=== PATIENT | male | born 1965 | race Caucasian/White ===

== ENCOUNTER → 2019-02-18 | Outpatient (CLI) | payer MEDICARE, MEDICAID ==
--- NOTE | 2019-02-18 09:40 | Diagnostic Imaging Report ---
EXAMINATION: Lumbar spine. INDICATION: Chronic back pain. COMPARISON: There are no prior studies available for comparison. FINDINGS: Three views were obtained. On the spot lateral view, there is a grade 1 spondylolisthesis of L5 with respect to S1 and narrowing of the disc space at L5-S1. There also appear to be bilateral pars defects. The alignment of the other vertebral bodies is within normal limits and the other intervertebral spaces are well-maintained. There is no fracture or acute bony abnormality evident. There is no sign of a paraspinal mass. There is mild symmetrical sclerosis of the sacroiliac joints. IMPRESSION: 1. There is no evidence for an acute bony abnormality. 2. There is fairly severe degenerative disc and bony disease at L5-S1. There is a grade 1 spondylolisthesis of L5 with respect to S1, narrowing of the disc space, and bilateral pars defects. 3. If there is clinical concern regarding spinal stenosis or nerve root encroachment at the L5-S1 level, then MRI would be recommended for further study. Dictated by: Dictated on workstation # [id number]
== END ==
LOC: RAD FS 09:00
PROVIDERS: ATTEND Nurse Practitioner Family
DX: M51.37 Other intervertebral disc degeneration, lumbosacral region (principal); M89.9 Disorder of bone, unspecified; M43.06 Spondylolysis, lumbar region
CPT/HCPCS: 72100

== ENCOUNTER → 2019-03-18 | Outpatient (CLI) | payer MEDICARE, MEDICAID ==
--- NOTE | 2019-03-18 11:32 | Diagnostic Imaging Report ---
INDICATION: Pre-MRI screening. Time of exam 11:20 a.m. FINDINGS: Right chest wall cardiac defibrillator is in place. Lead tips in the region of the right ventricle. No interruption of the leads is seen. There appears to be some infiltrate or atelectasis in the left base partially obscuring the left hemidiaphragm. Right lung is clear. There is no pneumothorax. IMPRESSION: Mild left basilar infiltrate or atelectasis. Dictated by: Dictated on workstation # [id number]
--- NOTE | 2019-03-18 12:10 | Diagnostic Imaging Report ---
PROCEDURE: MRI lumbar spine. TECHNIQUE: Multiplanar, multisequence MRI of the lumbar spine was performed without contrast. INDICATION: Low back pain and left hip pain. Patient has had two lumbar spine surgeries in last 20 years. COMPARISON: No prior studies are available for comparison. FINDINGS: Curvature of the lumbar spine is normal. There is grade 1 spondylolisthesis of L5 on S1. There are suspected pars defects at this level. Vertebral body heights are maintained. The marrow signal intensity is unremarkable. No acute compression fracture or geographic marrow lesion is seen. Mild disc desiccation is seen at L4-L5. There is loss of height and signal intensity of the L5-S1 disc, compatible with degenerative disc disease. The conus is unremarkable at the L1 level. T12-L1: Central canal and neuroforamina are widely patent. L1-L2: No central canal or neuroforaminal stenosis is identified. L2-L3: No central canal or neuroforaminal stenosis is identified. L3-L4: No central canal or neuroforaminal stenosis is identified. L4-L5: Central canal is patent. There is moderate left and [id number] right neuroforaminal narrowing due to broad-based disc/osteophyte complex. L5-S1: Broad-based disc/osteophyte complex indents the ventral thecal sac. Central canal is patent. There is bilateral lateral recess stenosis. There is significant bilateral neuroforaminal stenosis. Paraspinous tissues are unremarkable. IMPRESSION: 1. L5-S1 grade 1 spondylolisthesis and bilateral spondylolyses. Significant bilateral neuroforaminal and lateral recess stenosis is noted at this level as well. No central canal stenosis is seen. There is also moderate bilateral neuroforaminal narrowing at L4-L5. No other significant abnormality is seen. Dictated by: Dictated on workstation # [id number]
== END ==
LOC: RAD 02-27 12:41
PROVIDERS: ATTEND Nurse Practitioner Family
DX: Z01.818 Encounter for other preprocedural examination (principal); M43.17 Spondylolisthesis, lumbosacral region; M48.061 Spinal stenosis, lumbar region without neurogenic claudication; M51.36 Other intervertebral disc degeneration, lumbar region; Z95.810 Presence of automatic (implantable) cardiac defibrillator
CPT/HCPCS: 71045; 72148

== ENCOUNTER 2019-04-01 18:15 | Emergency (ER) | payer MEDICAID, MEDICARE ==
[~2019-04-01] VITALS: Ht 182.9 cm; Wt 113.4 kg
--- OUTSIDE RECORDS SUMMARY | 2019-04-01 18:20 | XMS REPORT | Continuity of Care Document ---
Author Organization Unknown Address Unknown Allergies There is no data. Medications There is no data. Problems There is no data. Procedures There is no data. Results Test Result Range A1C - 02/18/19 08:55 HEMOGLOBIN A1c 11.0 % of total Hgb <5.7 Encounters ACCT No. Visit Date/Time Discharge Status Pt. Type Provider Facility Loc./Unit Complaint [id number] 02/18/2019 08:00:00 02/18/2019 23:59:59 [facility] Outpatient JEROMY KRISHNAMURTHY [facility] [id number] 02/18/2019 08:00:00 Document Registration
[2019-04-01] MEDS ORDERED: NS IV 1000 ML 1,000 ML IV ONE (18:44)
[2019-04-01 18:58] LABS: BILIRUBIN,URINE NEGATIVE (NEGATIVE); CLARITY,URINE CLEAR; COLOR,URINE YELLOW; GLUCOSE, URINE (UA) NEGATIVE (NEGATIVE); KETONES,URINE NEGATIVE (NEGATIVE); LEUKOCYTE ESTERASE ,URINE NEGATIVE (NEGATIVE); NITRITE,URINE NEGATIVE (NEGATIVE); PROTEIN,URINE 2+ (NEGATIVE); RBC,URINE 0-2 /HPF; UROBILINOGEN,URINE 0.2 MG/DL (NORMAL)
[2019-04-01 18:59] LABS: BACTERIA,URINE TRACE /HPF; SQUAMOUS EPITHELIAL CELL,UR 0-2 /HPF; WBC,URINE 0-2 /HPF
[2019-04-01] MEDS ORDERED: KETOROLAC 30 MG/ML VIAL IVP ONE (19:00)
[2019-04-01 19:16] LABS: HEMATOCRIT 43 % (40-54); HEMOGLOBIN 14.5 G/DL (13.3-17.7); MEAN CORPUSCULAR HEMOGLOBIN 28 PG (25-34); MEAN CORPUSCULAR HGB CONC 34 G/DL (32-36); MEAN CORPUSCULAR VOLUME 83 FL (80-99); RED CELL DISTRIBUTION WIDTH 13.4 % (10.0-14.5); WHITE BLOOD COUNT 6.5 10^3/uL (4.3-11.0)
[2019-04-01 19:17] LABS: BASOPHILS % (AUTO) 1 % (0-10); EOSINOPHILS # (AUTO) 0.1 10^3/uL (0.0-0.3); EOSINOPHILS % (AUTO) 2 % (0-10); LYMPHOCYTES # (AUTO) 1.9 X 10^3 (1.0-4.0); LYMPHOCYTES % (AUTO) 29 % (12-44); MEAN PLATELET VOLUME 11.9 FL (7.4-10.4); MONOCYTES # (AUTO) 0.5 X 10^3 (0.0-1.0); MONOCYTES % (AUTO) 8 % (0-12); NEUTROPHILS # (AUTO) 3.9 X 10^3 (1.8-7.8); NEUTROPHILS % (AUTO) 60 % (42-75); PLATELET COUNT 256 10^3/uL (130-400)
[2019-04-01 19:57] LABS: BILIRUBIN,TOTAL 0.5 MG/DL (0.1-1.0); BUN/CREATININE RATIO 16; CALCIUM 10.4 MG/DL (8.5-10.1); CARBON DIOXIDE 22 MMOL/L (21-32); CHLORIDE 102 MMOL/L (98-107); CREATININE SERUM 1.02 MG/DL (0.60-1.30); GFR ESTIMATED > 60; GLUCOSE 149 MG/DL (70-105); POTASSIUM 4.7 MMOL/L (3.6-5.0); SODIUM 137 MMOL/L (135-145)
[2019-04-01 19:58] LABS: ALANINE AMINOTRANSFERASE 15 U/L (0-55); ALBUMIN 4.5 GM/DL (3.2-4.5); ALKALINE PHOSPHATASE 108 U/L (40-136); TOTAL PROTEIN 7.3 GM/DL (6.4-8.2)
[2019-04-01] MEDS ORDERED: fentaNYL INJECTION 100 MCG/2 ML AMP IVP ONE ×2 (20:15→20:45)
--- NOTE | 2019-04-01 20:39 | NUR ---
DOCTOR IN TO SEE THE PATIENT.
--- NOTE | 2019-04-01 21:14 | Diagnostic Imaging Report ---
Clinical indication: Patient started having left-sided flank pain that started today. Exam: KUB x-ray. Comparison: None. Findings: There are no focal calcifications overlying the expected regions/ pathways of both kidneys, ureters, and bladder regions. There is a nonobstructed bowel gas pattern. There is no evidence of abdominal free air. There is a small to moderate amount of stool seen throughout the colon with most noted in the right colon region. Surgical clips are seen overlying the right upper quadrant which could be related to cholecystectomy changes. There are degenerative spurs involving the visualized portion of the thoracic and lumbar spine. Partially visualized cardiac pacemaker/AICD wires are seen. Impression: There is no radiographic evidence for acute abdominal/ pelvic process or urinary tract stones. There is a small to moderate amount of stool seen throughout the colon. Dictated by: Dictated on workstation # [id number]
--- NOTE | 2019-04-01 21:15 | NUR ---
PT. STATED HIS PAIN IS STILL A 7
--- NOTE | 2019-04-01 21:30 | ED Abdominal Pain ---
General Chief Complaint: - Urinary Stated Complaint: BACK PAIN, PAIN W URINATION Nursing Triage Note: Patient c/o left flank pain. States he thinks it is a kidney stone. The pain started today around 3pm and was not relieved with tylenol. There is pain and frequency with urination. Sepsis Screen: No Definite Risk Source of Information: Patient Exam Limitations: No Limitations History of Present Illness Date Seen by Provider: April 01, 2019 Time Seen by Provider: 18:23 Initial Comments This 53-year-old man presents to the emergency room with complaints of left flank pain that started around 15:00. It radiates to the left groin. He has dysuria associated with it. He has a history of kidney stones and states this feels similar to prior kidney stones. He denies any fever, hematuria, nausea, vomiting, diarrhea, or constipation. He reports pain 9/10. Allergies and Home Medications Allergies Coded Allergies: aspirin (Verified Allergy, Unknown, 04/01/19) canagliflozin (Verified Allergy, Unknown, 04/01/19) Patient Home Medication List Home Medication List Reviewed: Yes Review of Systems Review of Systems Constitutional: no symptoms reported EENTM: No Symptoms Reported Respiratory: No Symptoms Reported Cardiovascular: No Symptoms Reported Gastrointestinal: See HPI Genitourinary: See HPI Musculoskeletal: no symptoms reported Skin: no symptoms reported Psychiatric/Neurological: No Symptoms Reported Endocrine: No Symptoms Reported Hematologic/Lymphatic: No Symptoms Reported Past Xngcpvt-Emzplc-Dobrfg Hx Past Med/Social Hx: Reviewed and Corrections made Patient Social History Alcohol Use: Denies Use Recreational Drug Use: No Smoking Status: Never a Smoker 2nd Hand Smoke Exposure: No Recent Foreign Travel: No Contact w/Someone Who Travel: No Recent Infectious Disease Expo: No Recent Hopitalizations: No Physical Abuse: No Sexual Abuse: No Mistreated: No Fear: No Seasonal Allergies Seasonal Allergies: No Past Medical History Surgeries: Yes Cardiac (ICD 3), Coronary Stent, Gallbladder, Nephrectomy, Orthopedic (back) Respiratory: Yes COPD Cardiac: Yes Hypertension Neurological: No Genitourinary: Yes Kidney Stones Gastrointestinal: No Musculoskeletal: No Endocrine: Yes Diabetes, Non-Insulin dep HEENT: No Cancer: No Psychosocial: No Integumentary: No Blood Disorders: No Physical Exam Vital Signs Vital Signs - First Documented 04/01/19 18:30 Temp 98.7 Pulse 74 Resp 18 B/P (MAP) 171/93 (119) Pulse Ox 98 O2 Delivery Room Air Capillary Refill : Less Than 3 Seconds Height/Weight/BMI Height: 6'0" Weight: 250lbs. oz. 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, no motor/sensory deficits, alert, normal mood/affect, oriented x 3 Skin: normal color, warm/dry Progress/Results/Core Measures Results/Orders Lab Results Laboratory Tests Test 04/01/19 18:42 04/01/19 19:00 Range/Units Urine Color YELLOW Urine Clarity CLEAR Urine pH 6.0 5-9 Urine Specific [place] 1.020 1.016-1.022 Urine Protein 2+ H NEGATIVE Urine Glucose (UA) NEGATIVE NEGATIVE Urine Ketones NEGATIVE NEGATIVE Urine Nitrite NEGATIVE NEGATIVE Urine Bilirubin NEGATIVE NEGATIVE Urine Urobilinogen 0.2 NORMAL MG/DL Urine Leukocyte Esterase NEGATIVE NEGATIVE Urine RBC (Auto) TRACE H NEGATIVE Urine RBC 0-2 /HPF Urine WBC 0-2 /HPF Urine Squamous Epithelial Cells 0-2 /HPF Urine Crystals NONE /LPF Urine Bacteria TRACE /HPF Urine Casts NONE /LPF Urine Mucus NONE /LPF Urine Culture Indicated NO White Blood Count 6.5 4.3-11.0 10^3/uL Red Blood Count 5.17 4.35-5.85 10^6/uL Hemoglobin 14.5 13.3-17.7 G/DL Hematocrit 43 40-54 % Mean Corpuscular Volume 83 80-99 FL Mean Corpuscular Hemoglobin 28 25-34 PG Mean Corpuscular Hemoglobin Concent 34 32-36 G/DL Red Cell Distribution Width 13.4 10.0-14.5 % Platelet Count 256 130-400 10^3/uL Mean Platelet Volume 11.9 H 7.4-10.4 FL Neutrophils (%) (Auto) 60 42-75 % Lymphocytes (%) (Auto) 29 12-44 % Monocytes (%) (Auto) 8 0-12 % Eosinophils (%) (Auto) 2 0-10 % Basophils (%) (Auto) 1 0-10 % Neutrophils # (Auto) 3.9 1.8-7.8 X 10^3 Lymphocytes # (Auto) 1.9 1.0-4.0 X 10^3 Monocytes # (Auto) 0.5 0.0-1.0 X 10^3 Eosinophils # (Auto) 0.1 0.0-0.3 10^3/uL Basophils # (Auto) 0.0 0.0-0.1 10^3/uL Sodium Level 137 135-145 MMOL/L Potassium Level 4.7 3.6-5.0 MMOL/L Chloride Level 102 98-107 MMOL/L Carbon Dioxide Level 22 21-32 MMOL/L Anion Gap 13 5-14 MMOL/L Blood Urea Nitrogen 16 7-18 MG/DL Creatinine 1.02 0.60-1.30 MG/DL Estimat Glomerular Filtration Rate > 60 BUN/Creatinine Ratio 16 Glucose Level 149 H 70-105 MG/DL Calcium Level 10.4 H 8.5-10.1 MG/DL Corrected Calcium 10.0 8.5-10.1 MG/DL Total Bilirubin 0.5 0.1-1.0 MG/DL Aspartate Amino Transf (AST/SGOT) 15 5-34 U/L Alanine Aminotransferase (ALT/SGPT) 15 0-55 U/L Alkaline Phosphatase 108 40-136 U/L Total Protein 7.3 6.4-8.2 GM/DL Albumin 4.5 3.2-4.5 GM/DL My Orders Orders - FRITZ SANTAMARIA MD Ua Culture If Indicated (04/01/19 18:23) Cbc With Automated Diff (04/01/19 18:44) Comprehensive Metabolic Panel (04/01/19 18:44) Ed Iv/Invasive Line Start (04/01/19 18:44) Ns Iv 1000 Ml (Sodium Chloride 0.9%) (04/01/19 18:44) Ketorolac Injection (Toradol Injection) (04/01/19 19:00) Fentanyl Injection (Sublimaze Injection (04/01/19 20:15) Abdomen Flat & Upright/Decub (04/01/19 20:42) Fentanyl Injection (Sublimaze Injection (04/01/19 20:45) Rx-Hydrocodone/Apap 5-325 Mg (Rx-Vicodin (04/01/19 21:45) Medications Given in ED Current Medications Medications Dose Ordered Sig/Yordy Route Start Time Stop Time Status Last Admin Dose Admin Fentanyl Citrate 50 mcg ONCE ONCE IVP 04/01/19 20:15 04/01/19 20:16 DC 04/01/19 20:19 50 MCG Sodium Chloride 1,000 ml @ 0 mls/hr Q0M ONCE IV 04/01/19 18:44 04/01/19 18:46 DC 04/01/19 20:00 1,000 MLS/HR Vital Signs/I&O 04/01/19 04/01/19 18:30 21:47 Temp 98.7 Pulse 74 70 Resp 18 18 B/P (MAP) 171/93 (119) 140/74 (96) Pulse Ox 98 95 O2 Delivery Room Air Room Air 04/02/19 00:00 Intake Total 1000 ml Balance 1000 ml Blood Pressure Mean: 119 Progress Progress Note : Progress Note Patient was first treated with Toradol and IV fluids. This gave him insufficient relief. Use and treated with fentanyl. Workup with labs, urinalysis, and abdominal x-ray was unremarkable. He was offered CT scan to search for ureteral stone. There was no hematuria but his pain was so similar to prior ureteral stone that CT imaging seemed appropriate. Patient declined to have CT done at this time. He will follow-up with his primary care provider and have the CT performed if he does not continue to improve at home. He was given a take-home pack of hydrocodone. Diagnostic Imaging Diagonstic Imaging: Xray Plain Films/CT/US/NM/MRI: abdomen, pelvis Comments KUB and upright x-rays viewed by me and report reviewed. See report below: NAME: JOSE CRUZ [facility] REC#: [id number] PT STATUS: DEP ER : 1965 PHYSICIAN: FRITZ SANTAMARIA MD ADMIT DATE: 04/01/19/ER FS Signed Date of Exam:04/01/19 ABDOMEN FLAT UPRIGHT/DECUB Clinical indication: Patient started having left-sided flank pain that started today. Exam: KUB x-ray. Comparison: None. Findings: There are no focal calcifications overlying the expected regions/ pathways of both kidneys, ureters, and bladder regions. There is a nonobstructed bowel gas pattern. There is no evidence of abdominal free air. There is a small to moderate amount of stool seen throughout the colon with most noted in the right colon region. Surgical clips are seen overlying the right upper quadrant which could be related to cholecystectomy changes. There are degenerative spurs involving the visualized portion of the thoracic and lumbar spine. Partially visualized cardiac pacemaker/AICD wires are seen. Impression: There is no radiographic evidence for acute abdominal/ pelvic process or urinary tract stones. There is a small to moderate amount of stool seen throughout the colon. Dictated by: Dictated on workstation # [id number] Dict: 04/01/192107 Trans: 04/01/19 2306 [facility] [id number] Interpreted by: LIU HACKETT MD Electronically signed by: LIU HACKETT MD 04/01/192305 Departure Impression Primary Impression: Left flank pain Additional Impression: Left lower quadrant pain Disposition: 01 HOME, SELF-CARE Condition: Improved Departure-Patient Inst. Referrals: [facility] Primary Care Physician JEROMY KRISHNAMURTHY APRN (Family) Primary Care Physician Patient Instructions: Kidney Stones in Adults, Acute Abdomen (Belly Pain) Add. Discharge Instructions: Drink plenty of clear liquids. You may take ibuprofen up to 600 mg every 6 hours as needed for pain. Add hydrocodone for pain not controlled by ibuprofen. Contact your doctor tomorrow morning for further care. Return to the ER if symptoms are worsening or you're not able to get in with your doctor. Strain your urine and bring any stones that may be caught to your follow-up appointment. All discharge instructions reviewed with patient and/or family. Voiced understanding. Copy Copies To 1: GENEVA CÁRDENAS JOSHUA T MD April 01, 2019 21:30
[2019-04-01] MEDS ORDERED: RX-HYDROCODONE/APAP 5/325 MG #4 TAB PK PO PRN (21:45)
[2019-04-01 21:47] VITALS: BP 140/74
== END 2019-04-01 21:47 | disposition home or self-care (01) ==
LOC: EDUNIT# 18:15 → ER FS 18:16
DX: R10.32 Left lower quadrant pain (principal); J44.9 Chronic obstructive pulmonary disease, unspecified; I10 Essential (primary) hypertension; E11.9 Type 2 diabetes mellitus without complications; Z87.442 Personal history of urinary calculi; Z88.6 Allergy status to analgesic agent; Z88.8 Allergy status to other drugs, medicaments and biological substances; Z95.5 Presence of coronary angioplasty implant and graft
CPT/HCPCS: 36415; 74019; 80053; 81000; 85025

== ENCOUNTER 2019-07-14 11:45 | Emergency (ER) | payer MEDICARE, MEDICAID ==
[~2019-07-14] VITALS: Ht 182.9 cm; Wt 111.1 kg
[2019-07-14] MEDS ORDERED: morphine INJ 10 MG/ML 1ML (SYR OR VIAL) IVP STA (12:17)
--- NOTE | 2019-07-14 12:26 | ED Abdominal Pain ---
General Chief Complaint: Back Problems Stated Complaint: RT FLANK PAIN Source of Information: Patient Exam Limitations: No Limitations History of Present Illness Date Seen by Provider: Jul 14, 2019 Time Seen by Provider: 12:10 Initial Comments The patient is a pleasant 53-year-old male who presents for evaluation of left flank pain which started yesterday evening. He reports a history of kidney stones the past and states that this feels the same. He denies any gross hematuria. He states the pain is starting to wrap around his left flank to his left lower abdomen. He is alert and oriented 4, appears uncomfortable, but is in no distress. He reports a history of hypertension and diabetes. He states he has had his gallbladder removed in the past but denies any other abdominal surgeries. He denies fevers or chills, nausea or vomiting, diarrhea, rectal bleeding, chest pain or shortness of breath, penile or testicular pain. Timing/Duration: 24 Hours Severity/Quality: Moderate Location: Flank (left) Radiation: LLQ Activities at Onset: None Associated Symptoms: Other (reports mild difficulty urinating) Allergies and Home Medications Allergies Coded Allergies: aspirin (Verified Allergy, Unknown, 04/01/19) canagliflozin (Verified Allergy, Unknown, 04/01/19) Home Medications Hydrocodone/Acetaminophen 1 Each Tablet, 1 TAB PO Q4H Prescribed by: ALON XAVIER on 07/14/19 1429 Tamsulosin HCl 0.4 Mg Cap, 0.4 MG PO DAILY Prescribed by: ALON XAVIER on 07/14/19 1429 Patient Home Medication List Home Medication List Reviewed: Yes Review of Systems Review of Systems Constitutional: no symptoms reported EENTM: No Symptoms Reported Respiratory: No Symptoms Reported Cardiovascular: No Symptoms Reported Gastrointestinal: No Symptoms Reported, Other (left flank pain) Genitourinary: Urgency Musculoskeletal: back pain (left flank) Skin: no symptoms reported Psychiatric/Neurological: No Symptoms Reported Endocrine: No Symptoms Reported Hematologic/Lymphatic: No Symptoms Reported All Other Systems Reviewed Negative Unless Noted: Yes Past Oyznywk-Mpnpfs-Xhlhak Hx Past Med/Social Hx: Reviewed Nursing Past Med/Soc Hx Patient Social History 2nd Hand Smoke Exposure: No Recent Hopitalizations: No Seasonal Allergies Seasonal Allergies: No Past Medical History Surgeries: Yes Cardiac, Coronary Stent, Gallbladder, Nephrectomy, Orthopedic Respiratory: Yes COPD Cardiac: Yes Hypertension Neurological: No Genitourinary: Yes Kidney Stones Gastrointestinal: No Musculoskeletal: No Endocrine: Yes Diabetes, Non-Insulin dep HEENT: No Cancer: No Psychosocial: No Integumentary: No Blood Disorders: No Physical Exam Vital Signs Vital Signs - First Documented 07/14/19 12:15 Temp 98.0 Pulse 92 Resp 20 B/P (MAP) 155/94 (114) Pulse Ox 96 O2 Delivery Room Air Capillary Refill : Height/Weight/BMI Height: 6'0" Weight: 250lbs. oz. 113.321921am; BMI Method:Stated General Appearance: WD/WN, no apparent distress, other (appears uncomfortable but in no distress) HEENT: PERRL/EOMI, normal ENT inspection Neck: non-tender, full range of motion, supple, normal inspection Respiratory: chest non-tender, lungs clear, normal breath sounds, no respiratory distress, no accessory muscle use Cardiovascular: regular rate, rhythm, no edema, no JVD Gastrointestinal: normal bowel sounds, non tender, soft, no pulsatile mass, tenderness (very mild LLQ) Extremities: normal range of motion, normal inspection, no pedal edema, no calf tenderness Back: CVA tenderness (L) 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, alert, normal mood/affect, oriented x 3 Skin: normal color, warm/dry Progress/Results/Core Measures Results/Orders Lab Results Laboratory Tests Test 07/14/19 12:15 07/14/19 12:26 07/14/19 15:01 Range/Units Urine Color YELLOW Urine Clarity CLEAR Urine pH 5.5 5-9 Urine Specific [place] 1.025 H 1.016-1.022 Urine Protein 2+ H NEGATIVE Urine Glucose (UA) 3+ H NEGATIVE Urine Ketones TRACE H NEGATIVE Urine Nitrite NEGATIVE NEGATIVE Urine Bilirubin NEGATIVE NEGATIVE Urine Urobilinogen 0.2 NORMAL MG/DL Urine Leukocyte Esterase NEGATIVE NEGATIVE Urine RBC (Auto) NEGATIVE NEGATIVE Urine RBC NONE /HPF Urine WBC 2-5 /HPF Urine Squamous Epithelial Cells 0-2 /HPF Urine Crystals NONE /LPF Urine Bacteria NEGATIVE /HPF Urine Casts PRESENT /LPF Urine Hyaline Casts 2-5 H /LPF Urine Mucus SMALL H /LPF Urine Culture Indicated NO White Blood Count 8.4 4.3-11.0 10^3/uL Red Blood Count 5.42 4.35-5.85 10^6/uL Hemoglobin 15.4 13.3-17.7 G/DL Hematocrit 45 40-54 % Mean Corpuscular Volume 83 80-99 FL Mean Corpuscular Hemoglobin 28 25-34 PG Mean Corpuscular Hemoglobin Concent 34 32-36 G/DL Red Cell Distribution Width 13.5 10.0-14.5 % Platelet Count 218 130-400 10^3/uL Mean Platelet Volume 12.4 H 7.4-10.4 FL Neutrophils (%) (Auto) 83 H 42-75 % Lymphocytes (%) (Auto) 12 12-44 % Monocytes (%) (Auto) 5 0-12 % Eosinophils (%) (Auto) 0 0-10 % Basophils (%) (Auto) 0 0-10 % Neutrophils # (Auto) 6.9 1.8-7.8 X 10^3 Lymphocytes # (Auto) 1.0 1.0-4.0 X 10^3 Monocytes # (Auto) 0.4 0.0-1.0 X 10^3 Eosinophils # (Auto) 0.0 0.0-0.3 10^3/uL Basophils # (Auto) 0.0 0.0-0.1 10^3/uL Sodium Level 137 135-145 MMOL/L Potassium Level 4.6 3.6-5.0 MMOL/L Chloride Level 95 L 98-107 MMOL/L Carbon Dioxide Level 23 21-32 MMOL/L Anion Gap 19 H 5-14 MMOL/L Blood Urea Nitrogen 15 7-18 MG/DL Creatinine 1.15 0.60-1.30 MG/DL Estimat Glomerular Filtration Rate > 60 BUN/Creatinine Ratio 13 Glucose Level 431 *H 70-105 MG/DL Calcium Level 10.4 H 8.5-10.1 MG/DL Corrected Calcium 10.0 8.5-10.1 MG/DL Total Bilirubin 0.8 0.1-1.0 MG/DL Aspartate Amino Transf (AST/SGOT) 35 H 5-34 U/L Alanine Aminotransferase (ALT/SGPT) 68 H 0-55 U/L Alkaline Phosphatase 137 H 40-136 U/L Total Protein 7.3 6.4-8.2 GM/DL Albumin 4.5 3.2-4.5 GM/DL Amylase Level 29 25-125 U/L Lipase 18 8-78 U/L Glucometer 257 H 70-110 MG/DL My Orders Orders - ALON XAVIER DO Comprehensive Metabolic Panel (07/14/19 12:17) Lipase (07/14/19 12:17) Amylase (07/14/19 12:17) Ua Culture If Indicated (07/14/19 12:17) Ed Iv/Invasive Line Start (07/14/19 12:17) Cbc With Automated Diff (07/14/19 12:17) Ct Abdomen/Pelvis Wo (07/14/19 12:17) Morphine Injection (Morphine Injection (07/14/19 12:17) Ns Iv 1000 Ml (Sodium Chloride 0.9%) (07/14/19 12:30) Tamsulosin Capsule (Flomax Capsule) (07/14/19 18:00) Tamsulosin Capsule (Flomax Capsule) (07/14/19 12:36) Fentanyl Injection (Sublimaze Injection (07/14/19 13:45) Fentanyl Injection (Sublimaze Injection (07/14/19 13:28) Insulin (Regular) Human (Humulin R (Per (07/14/19 14:15) Medications Given in ED Current Medications Medications Dose Ordered Sig/Yordy Route Start Time Stop Time Status Last Admin Dose Admin Fentanyl Citrate 75 mcg ONCE ONCE IVP 07/14/19 13:45 07/14/19 13:46 DC 07/14/19 13:43 75 MCG Insulin Human Regular 10 unit ONCE ONCE IJ 07/14/19 14:15 07/14/19 14:16 DC 07/14/19 14:24 10 UNIT Vital Signs/I&O 07/14/19 12:15 Temp 98.0 Pulse 92 Resp 20 B/P (MAP) 155/94 (114) Pulse Ox 96 O2 Delivery Room Air Progress Progress Note : Progress Note @1420 - patient updated on lab and imaging results which suggests a possible recently expelled kidney stone on the left. The patient's urinalysis does not suggest an infection so pyelonephritis unlikely. He is updated on his elevated blood sugar which he states is slightly higher than normal. The patient states he is starting to feel better and would like to go home soon. @1510 - Patient feeling better and asked to go home. He is stable for discharge at this time. Departure Impression Primary Impression: Left flank pain Disposition: HOME, SELF-CARE Condition: Stable Departure-Patient Inst. Decision time for Depature: 15:10 Referrals: [facility] (PCP) Primary Care Physician JEROMY KRISHNAMURTHY APRN (Family) Primary Care Physician Patient Instructions: Flank Pain (DC), Kidney Stones (DC) Add. Discharge Instructions: Take the prescribed medication as directed. Return to the ER for new or worsening symptoms. Follow-up with your PCP in the next 2-3 days. Scripts Tamsulosin HCl (Flomax) 0.4 Mg Cap 0.4 MG PO DAILY for 5 Days, #5 CAP Prov: ALON XAVIER DO 07/14/19 Hydrocodone/Acetaminophen ([place] 7.5-325 Tablet) 1 Each Tablet 1 TAB PO Q4H for PAIN-MODERATE MDD 6 TABS for 5 Days, #15 TAB Prov: ALON XAVIER DO 07/14/19 ALON XAVIER DO Jul 14, 2019 12:26
[2019-07-14] MEDS ORDERED: NS IV 1000 ML 1,000 ML IV SCH (12:30)
[2019-07-14] MEDS ORDERED: TAMSULOSIN 0.4 MG (FLOMAX) CAP PO ONE (12:36)
[2019-07-14 12:49] LABS: EOSINOPHILS % (AUTO) 0 % (0-10); HEMATOCRIT 45 % (40-54); HEMOGLOBIN 15.4 G/DL (13.3-17.7); LYMPHOCYTES % (AUTO) 12 % (12-44); MEAN CORPUSCULAR HEMOGLOBIN 28 PG (25-34); MEAN CORPUSCULAR HGB CONC 34 G/DL (32-36); MEAN CORPUSCULAR VOLUME 83 FL (80-99); MEAN PLATELET VOLUME 12.4 FL (7.4-10.4); MONOCYTES % (AUTO) 5 % (0-12); PLATELET COUNT 218 10^3/uL (130-400); RED CELL DISTRIBUTION WIDTH 13.5 % (10.0-14.5); WHITE BLOOD COUNT 8.4 10^3/uL (4.3-11.0)
[2019-07-14 12:50] LABS: BASOPHILS % (AUTO) 0 % (0-10); MONOCYTES # (AUTO) 0.4 X 10^3 (0.0-1.0); NEUTROPHILS # (AUTO) 6.9 X 10^3 (1.8-7.8); NEUTROPHILS % (AUTO) 83 % (42-75)
[2019-07-14 12:51] LABS: BACTERIA,URINE NEGATIVE /HPF; BILIRUBIN,URINE NEGATIVE (NEGATIVE); CLARITY,URINE CLEAR; COLOR,URINE YELLOW; GLUCOSE, URINE (UA) 3+ (NEGATIVE); KETONES,URINE TRACE (NEGATIVE); LEUKOCYTE ESTERASE ,URINE NEGATIVE (NEGATIVE); NITRITE,URINE NEGATIVE (NEGATIVE); PH,URINE 5.5 (5-9); PROTEIN,URINE 2+ (NEGATIVE); UROBILINOGEN,URINE 0.2 MG/DL (NORMAL)
[2019-07-14 12:52] LABS: SQUAMOUS EPITHELIAL CELL,UR 0-2 /HPF
[2019-07-14 13:01] LABS: BUN/CREATININE RATIO 13; CARBON DIOXIDE 23 MMOL/L (21-32); CHLORIDE 95 MMOL/L (98-107); CREATININE SERUM 1.15 MG/DL (0.60-1.30); GFR ESTIMATED > 60; POTASSIUM 4.6 MMOL/L (3.6-5.0); SODIUM 137 MMOL/L (135-145)
[2019-07-14 13:02] LABS: ALKALINE PHOSPHATASE 137 U/L (40-136); BILIRUBIN,TOTAL 0.8 MG/DL (0.1-1.0); CALCIUM 10.4 MG/DL (8.5-10.1); GLUCOSE 431 MG/DL (70-105)
[2019-07-14 13:03] LABS: ALANINE AMINOTRANSFERASE 68 U/L (0-55); ALBUMIN 4.5 GM/DL (3.2-4.5); AMYLASE 29 U/L (25-125); LIPASE 18 U/L (8-78); TOTAL PROTEIN 7.3 GM/DL (6.4-8.2)
[2019-07-14] MEDS ORDERED: fentaNYL INJECTION 100 MCG/2 ML AMP ONE (13:28)
--- NOTE | 2019-07-14 13:35 | NUR ---
1302 GLUCOSE PER LAB 431
[2019-07-14] MEDS ORDERED: fentaNYL INJECTION 100 MCG/2 ML AMP IVP ONE ×2 (13:45→15:30)
--- NOTE | 2019-07-14 14:00 | Diagnostic Imaging Report ---
PROCEDURE: CT abdomen and pelvis without contrast. TECHNIQUE: Multiple contiguous axial images were obtained through the abdomen and pelvis without the use of intravenous contrast. Auto Exposure Controls were utilized during the CT exam to meet ALARA standards for radiation dose reduction. INDICATION: Left flank pain. The patient does have a history of kidney stones. COMPARISON: No prior studies are available for comparison. FINDINGS: Left hemidiaphragm is mildly elevated. There is subsegmental atelectasis in the left lung base. Lung bases are otherwise clear. No discrete liver mass is identified. The gallbladder is surgically absent. No biliary ductal dilatation is seen. Pancreas and spleen are unremarkable. No adrenal mass is identified. The right kidney is atrophic. No calculi or hydronephrosis is seen. Left kidney is without calculi or hydronephrosis. There is mild perinephric inflammatory stranding present. No bladder calculi are seen. The aorta and iliac vessels are calcified but nonaneurysmal. Small and large bowel loops are normal in caliber. Appendix is unremarkable. There is no ascites. Mild diverticulosis of the sigmoid colon is noted but no evidence of acute diverticulitis. The prostate is normal in size. Bony structures demonstrate pars defects at L5-S1 level with mild spondylolisthesis of L5 on S1. No acute bony abnormality is detected. IMPRESSION: 1. Mild perinephric inflammatory stranding on the left without evidence of calculi or hydronephrosis. Findings could be secondary to recent passage of a calculus versus an infectious/inflammatory process of the left kidney. Correlation with urinalysis is recommended. 2. Uncomplicated sigmoid diverticulosis. 3. Atrophic right kidney. 4. No other significant abnormality is seen. Dictated by: Dictated on workstation # [id number]
[2019-07-14] MEDS ORDERED: inSUlin (REGULAR) HUMAN 1 UNIT/0.01 ML (CHARGE PER UNIT) IJ ONE (14:15)
[2019-07-14] MEDS ORDERED: HYDR-4227 PO (14:29)
[2019-07-14] MEDS ORDERED: TAMS0.4C98 PO (14:29)
[2019-07-14] MEDS ORDERED: HYDROcodone/APAP 5 MG/325 MG (LORTAB) TAB PO ONE (15:30)
[2019-07-14 15:40] VITALS: BP 112/74
[2019-07-14] MEDS ORDERED: TAMSULOSIN 0.4 MG (FLOMAX) CAP PO SCH (18:00)
== END 2019-07-14 15:40 | disposition home or self-care (01) ==
LOC: EDUNIT# 11:45 → ER FS 11:46
DX: R10.32 Left lower quadrant pain (principal); J44.9 Chronic obstructive pulmonary disease, unspecified; I10 Essential (primary) hypertension; E11.9 Type 2 diabetes mellitus without complications; Z87.442 Personal history of urinary calculi; Z88.6 Allergy status to analgesic agent; Z88.8 Allergy status to other drugs, medicaments and biological substances; Z95.5 Presence of coronary angioplasty implant and graft
CPT/HCPCS: 36415; 74176; 80053; 81000; 82150; 82962; 83690; 85025

== ENCOUNTER → 2020-07-27 | Outpatient (CLI) | payer MEDICARE, MEDICAID ==
[~2020-07-27] MED LIST: CATHETER FLUSH 10 ML SYR IV PRN; HOLD METFORMIN - RECEIVED CONTRAST 20 ML VIAL IV SCH; HYDR-4227 PO; IOHEXOL 350 MG/ML 100 ML (OMNIPAQUE 350) VIAL IV ONE; NS 100 ML (IVPB) BAG IV ONE; TMSL.4C PO
--- NOTE | 2020-07-27 12:59 | Diagnostic Imaging Report ---
PROCEDURE: CT angiography of the abdomen with and without contrast. TECHNIQUE: Multiple contiguous axial images were obtained through the abdomen and pelvis after administration of intravenous contrast. 3D MIP reconstructions were made. Auto Exposure Controls were utilized during the CT exam to meet ALARA standards for radiation dose reduction. INDICATION: Nausea, vomiting, diarrhea, and loss of appetite. Symptoms of 3 months duration. COMPARISON: 07/14/2019. FINDINGS: There is tortuosity but patency of the proximal celiac and superior mesenteric arteries. Those vessels primary branches are widely patent and the FELICIA proximally is patent. No findings of hollow visceral end organ ischemia. There is a small caliber and stenotic right renal artery with right renal atrophy, the latter unchanged from the comparison and presumed chronic. The left kidney is well-perfused, unobstructed, and nonacute. There is elevation of the left diaphragm, chronic. The gallbladder is surgically absent. No pathological bile duct dilatation. No ileus or bowel obstruction. IMPRESSION: No findings of mesenteric ischemia or obstructive features. Chronic right renal artery stenosis and presumed post chronic parenchymal atrophy without hydronephrosis. An acute appearing abnormality is not identified. Dictated by: Dictated on workstation # [id number]
== END ==
LOC: RAD 11:36
PROVIDERS: ATTEND Surgery
DX: I70.1 Atherosclerosis of renal artery (principal); N26.1 Atrophy of kidney (terminal); R63.0 Anorexia; R19.7 Diarrhea, unspecified; R11.2 Nausea with vomiting, unspecified
CPT/HCPCS: 74175

== ENCOUNTER → 2020-08-01 | Outpatient (CLI) | payer MEDICARE, MEDICAID ==
[~2020-08-01] MED LIST changes: +BARIUM for suspension 96% w/w (Vanilla Silq Medium Density) PO ONE; +BARIUM for suspension 98% w/w (Vanilla Silq High Density) PO ONE; -CATHETER FLUSH 10 ML SYR IV PRN; -HOLD METFORMIN - RECEIVED CONTRAST 20 ML VIAL IV SCH; -IOHEXOL 350 MG/ML 100 ML (OMNIPAQUE 350) VIAL IV ONE; -NS 100 ML (IVPB) BAG IV ONE
--- NOTE | 2020-08-01 10:17 | Diagnostic Imaging Report ---
INDICATION: Partial small bowel obstruction. TECHNIQUE: The patient ingested effervescent crystals as well as thin and thick barium and imaging of the esophagus, stomach, and proximal small bowel was performed. A total 51 seconds of fluoroscopic time was utilized. FINDINGS: The esophagus has a smooth contour. No mass or stricture is identified. No hiatal hernia or gastroesophageal reflux was demonstrated. The stomach is normal in configuration. There is prompt emptying into the small bowel. The duodenal bulb is without deformity. IMPRESSION: Unremarkable upper GI. Dictated by: Dictated on workstation # [id number]
--- NOTE | 2020-08-01 10:23 | Diagnostic Imaging Report ---
INDICATION: Partial small bowel obstruction. TECHNIQUE: The patient ingested thin and thick barium and serial radiographs of the abdomen were obtained. FINDINGS: The small bowel is nondilated. There is a normal small bowel transit time to the right colon with contrast seen in the right colon at approximately 1 hour. The mucosal fold pattern is unremarkable. No intrinsic or extrinsic mass is detected. IMPRESSION: Unremarkable small bowel study. Dictated by: Dictated on workstation # [id number]
== END ==
LOC: RAD 08:00
PROVIDERS: ATTEND Surgery
DX: K56.600 Partial intestinal obstruction, unspecified as to cause (principal)
CPT/HCPCS: 74246; 74248

== ENCOUNTER → 2021-03-16 | Outpatient (CLI) | payer MEDICARE, MEDICAID ==
[~2021-03-16] MED LIST changes: -BARIUM for suspension 96% w/w (Vanilla Silq Medium Density) PO ONE; -BARIUM for suspension 98% w/w (Vanilla Silq High Density) PO ONE
== END ==
LOC: CARD 11:00
PROVIDERS: ATTEND Family Medicine
DX: I51.7 Cardiomegaly (principal); I42.9 Cardiomyopathy, unspecified
CPT/HCPCS: 93306

== ENCOUNTER → 2021-05-31 | Outpatient (CLI) | payer MEDICARE, MEDICAID ==
--- NOTE | 2021-05-31 11:55 | Diagnostic Imaging Report ---
PROCEDURE: CT head without contrast. TECHNIQUE: Multiple contiguous axial images were obtained through the brain without the use of intravenous contrast. Auto Exposure Controls were utilized during the CT exam to meet ALARA standards for radiation dose reduction. INDICATION: Syncope, left orbital bleeding. No relevant comparison. The globes and extraocular musculature appeared unremarkable, the retrobulbar orbital fat unremarkable. No obvious asymmetry. The preseptal, periorbital soft tissues and the bony orbital tapia intact. The paranasal sinuses are clear. There is no intracranial hemorrhage, edema, mass or findings of a recent infarct. No evidence for elevated intracranial pressures. The basilar cisterns are patent. The sulci non-effaced. The calvarium unremarkable. The mastoid air cells and middle ear cavities clear. There is a small mucus retention cyst in the floor of the right maxillary sinus of less than 1 cm. IMPRESSION: Unremarkable CT head. In particular no acute pathology or findings to explain the presenting complaints. Dictated by: Dictated on workstation # [id number]
== END ==
LOC: RAD FS 11:24
PROVIDERS: ATTEND Allergy & Immunology
DX: H57.89 Other specified disorders of eye and adnexa (principal); R55 Syncope and collapse
CPT/HCPCS: 70450

== ENCOUNTER 2022-05-31 12:01 | Emergency (ER) | payer MEDICARE, MEDICAID ==
[~2022-05-31] VITALS: Ht 182 cm; Wt 116.0 kg
--- NOTE | 2022-05-31 12:18 | ED Chest Pain ---
General Chief Complaint: Chest Pain Stated Complaint: CHEST PAIN Source: patient History of Present Illness Date Seen by Provider: May 31, 2022 Time Seen by Provider: 12:01 Initial Comments 56-year-old male presenting with complaints of left-sided chest pain for approximately 30 minutes. 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 He last ate breakfast around 730 this morning. He has been drinking water all day. He states this does feel somewhat similar to when he has had a heart attack in the past, but it does not feel exactly like the previous heart attack. He follows with Dr. Colon for cardiology in [place]. He reports being allergic to aspirin but takes warfarin as a blood thinner. He has diabetes, Htn, CAD. 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) Prior CP/Workup: angina, heart attack ASA po PYROMETALLURGICAL ENGINEER: No NTG SL PYROMETALLURGICAL ENGINEER: Yes (helped some) Associated Symptoms: No abdominal pain, No back pain; diaphoresis (initially but was hot outside so unsure if heat related or pain related); No dizziness, No edema, No fatigue, No fever/chills, No headache, No heartburn, No n ausea/vomiting, No rash, No shortness of breath, No swelling/lump in chest, No syncope, No weakness Allergies and Home Medications Allergies Coded Allergies: aspirin (Verified Allergy, Unknown, 04/01/19) canagliflozin (Verified Allergy, Unknown, 04/01/19) Patient Home Medication List Home Medication List Reviewed: Yes Hydrocodone/Acetaminophen ([place] 7.5-325 Tablet) 1 Each Tablet, 1 TAB PO Q4H Prescribed by: ALON XAVIER on 07/14/19 1429 Tamsulosin HCl (Flomax) 0.4 Mg Cap, 0.4 MG PO DAILY Prescribed by: ALON XAVIER on 07/14/19 1429 Review of Systems Review of Systems Constitutional: see HPI EENTM: No Symptoms Reported Respiratory: No Symptoms Reported Cardiovascular: See HPI Gastrointestinal: See HPI Genitourinary: No Symptoms Reported Musculoskeletal: no symptoms reported Skin: no symptoms reported Psychiatric/Neurological: No Symptoms Reported Endocrine: No Symptoms Reported Past Gbmtctk-Zsrrym-Mmrcyk Hx Seasonal Allergies Seasonal Allergies: No Past Medical History Surgeries: Yes Cardiac, Coronary Stent, Gallbladder, Nephrectomy, Orthopedic Respiratory: Yes COPD Cardiac: Yes Hypertension Neurological: No Genitourinary: Yes Kidney Stones Gastrointestinal: No Musculoskeletal: No Endocrine: Yes Diabetes, Non-Insulin dep HEENT: No Cancer: No Psychosocial: No Integumentary: No Blood Disorders: No Physical Exam Vital Signs Vital Signs - First Documented 05/31/22 12:01 Temp 36.4 Pulse 79 Resp 18 B/P (MAP) 186/51 (96) Pulse Ox 94 O2 Delivery Room Air Capillary Refill : Height, Weight, BMI Height: 6'0" Weight: 245lbs. 0oz. 111.558830jf; BMI Method:Stated General Appearance: Anxious, Obese HEENT: PERRL/EOMI, Pharynx Normal Neck: Full Range of Motion, Normal Inspection, Non Tender, Supple Respiratory: Chest Non Tender, Lungs Clear, Normal Breath Sounds, No Accessory Muscle Use, No Respiratory Distress Cardiovascular: Regular Rate, Rhythm, Normal Peripheral Pulses Gastrointestinal: Normal Bowel Sounds, No Pulsatile Mass, Non Tender, Soft Rectal: Deferred Extremity: Normal Capillary Refill, Normal Inspection, No Calf Tenderness, No Pedal Edema Neurologic/Psychiatric: Alert, Oriented x3, No Motor/Sensory Deficits, Normal Mood/Affect, frame assembler II-XII Norm as Tested Skin: Normal Color, Warm/Dry Progress/Results/Core Measures Results/Orders Lab Results Laboratory Tests Test 05/31/22 12:11 05/31/22 14:05 Range/Units White Blood Count 10.3 4.3-11.0 10^3/uL Red Blood Count 5.01 4.30-5.52 10^6/uL Hemoglobin 13.8 13.3-17.7 g/dL Hematocrit 42 40-54 % Mean Corpuscular Volume 84 80-99 fL Mean Corpuscular Hemoglobin 28 25-34 pg Mean Corpuscular Hemoglobin Concent 33 32-36 g/dL Red Cell Distribution Width 13.7 10.0-14.5 % Platelet Count 238 130-400 10^3/uL Mean Platelet Volume 10.9 9.0-12.2 fL Immature Granulocyte % (Auto) 1 % Neutrophils (%) (Auto) 84 H 42-75 % Lymphocytes (%) (Auto) 8 L 12-44 % Monocytes (%) (Auto) 7 0-12 % Eosinophils (%) (Auto) 1 0-10 % Basophils (%) (Auto) 0 0-10 % Neutrophils # (Auto) 8.6 H 1.8-7.8 10^3/uL Lymphocytes # (Auto) 0.8 L 1.0-4.0 10^3/uL Monocytes # (Auto) 0.7 0.0-1.0 10^3/uL Eosinophils # (Auto) 0.1 0.0-0.3 10^3/uL Basophils # (Auto) 0.0 0.0-0.1 10^3/uL Immature Granulocyte # (Auto) 0.1 0.0-0.1 10^3/uL Neutrophils % (Manual) 78 % Lymphocytes % (Manual) 8 % Monocytes % (Manual) 6 % Eosinophils % (Manual) 2 % Basophils % (Manual) 1 % Band Neutrophils 2 % Atypical Lymphocytes 3 % Prothrombin Time 26.0 H 12.2-14.7 SEC INR Comment 2.3 H 0.8-1.4 Activated Partial Thromboplast Time 37 H 24-35 SEC Sodium Level 137 135-145 MMOL/L Potassium Level 4.6 3.6-5.0 MMOL/L Chloride Level 99 98-107 MMOL/L Carbon Dioxide Level 29 21-32 MMOL/L Anion Gap 9 5-14 MMOL/L Blood Urea Nitrogen 21 H 7-18 MG/DL Creatinine 1.42 H 0.60-1.30 MG/DL Estimat Glomerular Filtration Rate 58 BUN/Creatinine Ratio 15 Glucose Level 197 H 70-105 MG/DL Calcium Level 9.7 8.5-10.1 MG/DL Corrected Calcium 9.5 8.5-10.1 MG/DL Magnesium Level 1.6 1.6-2.4 MG/DL Total Bilirubin 0.6 0.1-1.0 MG/DL Aspartate Amino Transf (AST/SGOT) 20 5-34 U/L Alanine Aminotransferase (ALT/SGPT) 30 0-55 U/L Alkaline Phosphatase 157 H 40-136 U/L Myoglobin 144.3 H <72.0 NG/ML Troponin I < 0.30 < 0.30 <0.30 NG/ML Pro-B-Type Natriuretic Peptide 170.0 H <125.0 PG/ML Total Protein 7.1 6.4-8.2 GM/DL Albumin 4.2 3.2-4.5 GM/DL Lipase 16 8-78 U/L My Orders Orders - KIMBER JENNINGS MD Cbc With Automated Diff (05/31/22 12:10) Magnesium (05/31/22 12:10) Chest 1 View Ap/Pa Only (05/31/22 12:10) Ekg Tracing (05/31/22 12:10) Comprehensive Metabolic Panel (05/31/22 12:10) Myoglobin Serum (05/31/22 12:10) Protime With Inr (05/31/22 12:10) Partial Thromboplastin Time (05/31/22 12:10) O2 (05/31/22 12:10) Monitor-Rhythm Ecg Trace Only (05/31/22 12:10) Ed Iv/Invasive Line Start (05/31/22 12:10) Lipase (05/31/22 12:10) Troponin I Fs (05/31/22 12:10) Probnp Fs (05/31/22 12:10) Morphine Injection (Morphine Injection (05/31/22 12:15) Nitro Drip 35361 Mcg/D5w (Nitroglycerin (05/31/22 12:15) Vital Signs: Special (Order) (05/31/22 12:10) Initiate/Follow Protocol (05/31/22 12:10) Manual Differential (05/31/22 12:11) Ekg Tracing (05/31/22 13:57) Troponin I Fs (05/31/22 13:57) Medications Given in ED Current Medications Medications Dose Ordered Sig/Yordy Route Start Time Stop Time Status Last Admin Dose Admin Morphine Sulfate 2 mg ONCE ONCE IVP 05/31/22 12:15 05/31/22 12:16 DC 05/31/22 12:21 2 MG Nitroglycerin/ Dextrose 250 ml @ 0 mls/hr Q0M ONCE IV 05/31/22 12:15 05/31/22 12:16 DC 05/31/22 12:29 3 MLS/HR Vital Signs/I&O 05/31/22 05/31/22 05/31/22 12:01 12:29 14:55 Temp 36.4 36.5 Pulse 79 78 71 Resp 18 18 B/P (MAP) 186/51 (96) 151/79 144/75 Pulse Ox 94 99 O2 Delivery Room Air Room Air Progress Progress Note #1: Progress Note Check electrocardiogram as well as labs and chest x-ray. Obtain cardiac enzymes to evaluate for acute coronary syndrome or [place]. Since he is allergic to aspirin and will defer administering any of this. I did order oxygen, nitroglycerin drip since he had already done sublingual nitroglycerin prior to arrival. Initial electrocardiogram did not show ST elevation to activate International Trade Analyst. No prior tracing available for comparison. Differential diagnosis includes myocardial infarction, acute coronary syndrome, anxiety, chest wall pain, esophageal spasm, dehydration, upper respiratory infection, musculoskeletal chest pain Progress Note #2: Progress Note Pain improved and resolved with the nitroglycerin drip. His labs all appeared stable without acute significant abnormality. He did have mild elevation of his BUN and creatinine so he might be slightly dehydrated. His troponin was less than 0.3. He had no acute process in his chest. A repeat electrocardiogram was performed when he was pain-free and did not show any acute changes from his previous tracing. Will obtain a 2-hour troponin and see if it was rising or having any change. Progress Note #3: Progress Note Repeat troponin was still negative at less than 0.3. Reassured patient and counseled on follow-up and return precautions. Advised to call Dr. Colon with Cardiology at [place] for follow up. Initial ECG Impression Date: May 31, 2022 Initial ECG Impression Time: 12:04 Initial ECG Rate: 71 Initial ECG Rhythm: Normal Sinus Initial ECG Comparisson: No Previous ECG Available Comment Normal sinus rhythm with a heart rate of 71 bpm. FL interval [address] elevation. QT interval 360 ms with a QTc interval 383 ms. There is no prior tracing available for comparison. EKG : EKG Time: 13:47 Rate: 74 Rhythm: Normal Sinus ECG Comparisson: Unchanged Comment Normal sinus rhythm with a heart rate of 74 bpm. FL interval [address] elevation. QT interval 383 ms with a QTc interval 410 ms. Appears similar to prior tracing from 12:04 PM today Diagnostic Imaging Diagonstic Imaging: Xray Plain Films/CT/US/NM/MRI: chest Comments [facility] [place], [place] NAME: JOSE CRUZ Shannan MED REC#: [id number] PT STATUS: DEP ER : 1965 PHYSICIAN: KIMBER JENNINGS MD ADMIT DATE: 05/31/22/ER FS Signed Date of Exam:05/31/22 CHEST 1 VIEW AP/PA ONLY INDICATION: Chest pain. TIME OF EXAM: 12:17 p.m. COMPARISON: Correlation is made with prior chest from 03/18/2019. FINDINGS: Heart size is stable. Left hemidiaphragm is chronically elevated. The lungs are clear of acute infiltrates. No effusion or pneumothorax is detected. Cardiac defibrillator remains in place. IMPRESSION: Stable chest. No acute cardiopulmonary process is detected. Dictated by: Dictated on workstation # [id number] Dict: 05/31/22 1224 Trans: 05/31/22 1550 [id number] [id number] Interpreted by: BUD GIRON MD Electronically signed by: BUD GIRON MD 05/31/22 1550 Reviewed: Reviewed by Me Departure Impression Primary Impression: Chest pain in adult Additional Impression: Dehydration Disposition: 01 HOME, SELF-CARE Condition: Improved Departure-Patient Inst. Decision time for Depature: 14:50 Referrals: BASSAM RABAGO MD (PCP) Primary Care Physician Patient Instructions: Dehydration, Adult ED, Chest Pain, Adult ED Add. Discharge Instructions: Make sure you stay well-hydrated and drink plenty fluids and electrolyte drinks. Stay out of the heat for at least the next several days. Call Dr. Colon's office to arrange for follow up as he may want to have you get an updated stress test or heart catheterization to further evaluate your symptoms. All discharge instructions reviewed with patient and/or family. Voiced understanding. Work/School Note: Work Release Form Date Seen in the Emergency Department: May 31, 2022 Return to Work: Jun 04, 2022 Restrictions: Need Release from Doctor Other Restrictions Listed Below: Take it easy and stay out of the heat for next few days KIMBER JENNINGS MD May 31, 2022 12:18
[2022-05-31 12:19] LABS: BASOPHILS % (AUTO) 0 % (0-10); EOSINOPHILS # (AUTO) 0.1 10^3/uL (0.0-0.3); EOSINOPHILS % (AUTO) 1 % (0-10); HEMATOCRIT 42 % (40-54); HEMOGLOBIN 13.8 g/dL (13.3-17.7); LYMPHOCYTES # (AUTO) 0.8 10^3/uL (1.0-4.0); LYMPHOCYTES % (AUTO) 8 % (12-44); MEAN CORPUSCULAR HEMOGLOBIN 28 pg (25-34); MEAN CORPUSCULAR HGB CONC 33 g/dL (32-36); MEAN CORPUSCULAR VOLUME 84 fL (80-99); MEAN PLATELET VOLUME 10.9 fL (9.0-12.2); MONOCYTES # (AUTO) 0.7 10^3/uL (0.0-1.0); MONOCYTES % (AUTO) 7 % (0-12); NEUTROPHILS # (AUTO) 8.6 10^3/uL (1.8-7.8); NEUTROPHILS % (AUTO) 84 % (42-75); PLATELET COUNT 238 10^3/uL (130-400); WHITE BLOOD COUNT 10.3 10^3/uL (4.3-11.0)
[2022-05-31] MEDS: morphine INJ 10 MG/ML 1ML (SYR OR VIAL) IVP ONE (12:21)
--- NOTE | 2022-05-31 12:27 | Diagnostic Imaging Report ---
INDICATION: Chest pain. TIME OF EXAM: 12:17 p.m. COMPARISON: Correlation is made with prior chest from 03/18/2019. FINDINGS: Heart size is stable. Left hemidiaphragm is chronically elevated. The lungs are clear of acute infiltrates. No effusion or pneumothorax is detected. Cardiac defibrillator remains in place. IMPRESSION: Stable chest. No acute cardiopulmonary process is detected. Dictated by: Dictated on workstation # [id number]
[2022-05-31] MEDS: NITRO DRIP 25000 MCG/D5W 250 ML IV ONE (12:29)
[2022-05-31 13:09] LABS: INR 2.3 (0.8-1.4)
[2022-05-31 13:13] LABS: BILIRUBIN,TOTAL 0.6 MG/DL (0.1-1.0); CALCIUM 9.7 MG/DL (8.5-10.1); CREATININE SERUM 1.42 MG/DL (0.60-1.30); MAGNESIUM 1.6 MG/DL (1.6-2.4); POTASSIUM 4.6 MMOL/L (3.6-5.0)
[2022-05-31 13:14] LABS: ALBUMIN 4.2 GM/DL (3.2-4.5); TOTAL PROTEIN 7.1 GM/DL (6.4-8.2)
[2022-05-31 14:16] LABS: ATYPICAL LYMPHOCYTES 3 %; BAND NEUTROPHILS 2 %; BASOPHILS % (MANUAL) 1 %; EOSINOPHILS % (MANUAL) 2 %; LYMPHOCYTES % (MANUAL) 8 %; MONOCYTES % (MANUAL) 6 %; NEUTROPHILS % (MANUAL) 78 %
[2022-05-31 14:55] VITALS: BP 144/75
== END 2022-05-31 14:57 | disposition home or self-care (01) ==
LOC: EDUNIT# 12:01 → ER FS 12:03
DX: R07.89 Other chest pain (principal); E86.0 Dehydration; I25.10 Atherosclerotic heart disease of native coronary artery without angina pectoris; E66.9 Obesity, unspecified; R79.89 Other specified abnormal findings of blood chemistry; Z86.79 Personal history of other diseases of the circulatory system; Z95.5 Presence of coronary angioplasty implant and graft; Z28.310 Unvaccinated for COVID-19; Z79.01 Long term (current) use of anticoagulants
CPT/HCPCS: 36415; 71045; 80053; 83690; 83735; 83874; 83880; 84484; 85007; 85027; 85610; 85730; 93005; 93041